=== PATIENT | male | born 1995 | race Caucasian/White ===

== ENCOUNTER 2022-02-20 18:38 | Emergency (ER) | payer OTHER ==
[~2022-02-20] VITALS: Ht 180.3 cm; Wt 64.4 kg
--- NOTE | 2022-02-20 19:20 | NUR ---
SOB X 1 1/2 WEEKS AND CHEST PAIN TODAY. PT A/OX4. TOLERATING R/A WITH NO SOB. CONNECTED PT TO POX AND MONITOR
--- NOTE | 2022-02-20 19:33 | NUR ---
IV LINE ESTABLISHED ON LAC #18, BLOOD DRAWN AND SENT TO LAB
--- NOTE | 2022-02-20 19:46 | NUR ---
ANALYTICAL LAB TECHNICIAN AT PT'S BEDSIDE
[2022-02-20 20:04] LABS: CALCIUM, SERUM 9.6 mg/dL (8.5-10.1); CARBON DIOXIDE 29 mmol/L (21-32); CHLORIDE 99 mmol/L (98-107); CREATININE 1.1 mg/dL (0.6-1.3); GLUCOSE 101 mg/dL (74-106); POTASSIUM 3.4 mmol/L (3.5-5.1); SODIUM SERUM 141 mmol/L (136-145); UREA NITROGEN, BLOOD 9 mg/dL (7-18)
[2022-02-20 20:09] LABS: BASOPHILS % (AUTO) 0.4 % (0.0-2.0); EOSINOPHILS % (AUTO) 0.1 % (0.0-6.0); HEMATOCRIT 42 % (39-51); HEMOGLOBIN 14.6 g/dL (13.5-17.5); LYMPHOCYTES # (AUTO) 1.2 K/uL (0.8-4.8); LYMPHOCYTES % (AUTO) 18.1 % (20.0-44.0); MEAN CORPUSCULAR HGB CONC 35 g/dl (31.0-36.0); MEAN CORPUSCULAR VOLUME 86 fL (80-96); MONOCYTES # (AUTO) 0.6 K/uL (0.1-1.30); MONOCYTES % (AUTO) 9.9 % (2.0-12.0); NEUTROPHILS # (AUTO) 4.6 K/uL (1.8-8.9); NEUTROPHILS % (AUTO) 71.5 % (43.0-81.0); PLATELET COUNT (AUTO) 271 K/uL (150-450); RED BLOOD CELL COUNT(AUTO) 4.85 MIL/uL (4.5-6.0); WHITE BLOOD COUNT (AUTO) 6.5 K/uL (4.3-11.0)
[2022-02-20] MEDS: POTASSIUM CHLORIDE 10 MEQ TABLET.SA PO ONE (20:58)
[2022-02-20 20:59] VITALS: BP 136/87
--- NOTE | 2022-02-20 20:59 | NUR ---
Patient discharged to home in stable condition. Written and verbal after care instructions given. Patient verbalizes understanding of instruction. IV removed. Catheter intact and site benign. Pressure and 4x4 applied to site. No bleeding noted. PT ambulatory with a steady gait
== END 2022-02-20 21:00 | disposition home or self-care (01) ==
LOC: ER 18:46
DX: R07.89 Other chest pain (principal); Z88.0 Allergy status to penicillin; Z60.2 Problems related to living alone
CPT/HCPCS: 36415; 71045-TC; 80048-TC; 84484-TC; 85025-TC

== ENCOUNTER 2022-03-13 19:14 | Emergency (ER) | payer OTHER ==
[~2022-03-13] VITALS: Ht 180.3 cm; Wt 64.4 kg
--- NOTE | 2022-03-13 20:16 | NUR ---
BIBSELF C/O LEFT SIDED CP RAD TO ABD WITH SOB X 1 DAY , A/O X 4, RESPIRATORY EVEN AND UNABORED NO SOB NOTED, DENIES N/V.
[2022-03-13] MEDS ORDERED: MAG HYDROX/AL HYDROX/SIMETH 30 ML UDC ONE (21:52)
[2022-03-13] MEDS ORDERED: KETOROLAC TROMETHAMINE INJ 30 MG/ML VIAL ONE (21:52)
[2022-03-13] MEDS ORDERED: LIDOCAINE VISCOUS 2% UD 15 ML UDC ONE (21:52)
--- NOTE | 2022-03-13 21:58 | NUR ---
Patient discharged to home in stable condition. Written and verbal after care instructions given. Patient verbalizes understanding of instruction.
[2022-03-13 21:59] VITALS: BP 140/80
[2022-03-13] MEDS ORDERED: MAG HYDROX/AL HYDROX/SIMETH 30 ML UDC PO ONE (22:00)
[2022-03-13] MEDS ORDERED: KETOROLAC TROMETHAMINE INJ 60 MG/2 ML VIAL IM ONE (22:00)
[2022-03-13] MEDS ORDERED: LIDOCAINE VISCOUS 2% UD 15 ML UDC MM ONE (22:00)
== END 2022-03-13 21:59 | disposition home or self-care (01) ==
LOC: ER 19:18
DX: R07.89 Other chest pain (principal); Z88.0 Allergy status to penicillin; Z60.2 Problems related to living alone
CPT/HCPCS: 99283; 71045; 96372; 93005; J1885